=== PATIENT | male | born 1955 | race Caucasian/White ===

== ENCOUNTER → 2024-05-19 | Outpatient (CLI) | payer MEDICARE, BC ==
--- NOTE | 2024-05-19 10:08 | XR ---
EXAMINATION TYPE: XR chest 2V DATE OF EXAM: 05/19/2024 9:31 AM COMPARISON: None CLINICAL INDICATION: Male, 68 years old with history of R06.09 DYSPNEA; [facility] TECHNIQUE: XR chest 2V Frontal and lateral views of the chest. FINDINGS: Lungs/Pleura: There is no evidence of pleural effusion, focal consolidation, or pneumothorax. Pulmonary vascularity: Unremarkable. Heart/mediastinum: Cardiomediastinal silhouette is unremarkable. Musculoskeletal: No acute osseous pathology. IMPRESSION: No acute cardiopulmonary disease/process. [facility], , 05/19/2024 10:05 AM
== END ==
LOC: RADXRMAIN 09:13
PROVIDERS: ATTEND Internal Medicine
DX: Z11.59 Encounter for screening for other viral diseases (principal); Z00.00 Encounter for general adult medical examination without abnormal findings; N40.1 Benign prostatic hyperplasia with lower urinary tract symptoms; R06.09 Other forms of dyspnea
CPT/HCPCS: 71046

== ENCOUNTER → 2024-05-23 | Outpatient (CLI) | payer BC, MEDICARE ==
[2024-05-19 14:57] LABS: Basophils % (A) 1.3 %; Eosinophils % (A) 2.7 %; HCT 46.6 % (39.6-50.0); HGB 15.4 g/dL (13.0-17.0); Lymphocytes % (A) 36.3 %; Monocytes # (A) 0.64 X 10*3/uL (0.20-1.00); Monocytes % (A) 8.6 %; NRBC Per 100 WBC 0 X 10*3/uL (0.00-0.01); Neutrophils # (A) 3.77 X 10*3/uL (1.80-7.70); Neutrophils % (A) 50.8 %; Platelet Count 213 X 10*3/uL (140-440); RBC 4.96 X 10*6/uL (4.40-5.60); RDW 12.6 % (11.5-14.5); WBC 7.43 X 10*3/uL (4.50-10.00)
[2024-05-19 15:13] LABS: ALT 15 U/L (10-49); AST 14 U/L (14-35); Albumin 4.4 g/dL (3.8-4.9); Albumin/Globulin Ratio 1.76 Ratio (1.60-3.17); Alkaline Phosphatase 45 U/L (41-126); Calcium 9.4 mg/dL (8.7-10.3); Chloride 104 mmol/L (96-109); Chol/HDL Ratio 4.28 Ratio; Globulin 2.5 g/dL (1.6-3.3); Glucose 103 mg/dL (70-110); PSA Annual Screen 0.162 ng/mL (0.000-4.000); Potassium 4.8 mmol/L (3.5-5.5); Sodium 140 mmol/L (135-145); Total Bilirubin 0.3 mg/dL (0.3-1.2); Total Protein 6.9 g/dL (6.2-8.2)
--- NOTE | 2024-05-23 11:28 | CA ---
Stress Echo Report Elton Lilly Age: 68 Gender: M : 1955 Exam Date: 05/23/2024 09:44 Exam Location: [facility] Ht (in): 72 Wt (lb): 205 Ordering Physician: Arnold Cantu DO Referring Physician: KIESHA,, Infection Control Nurse: Amanda Kelley RDCS Technologist Procedure CPT: Indication: R06.09 Dyspnea ICD-9 Codes: Rhythm: Patient History: DIFFICULTY IN BREATHING, HYPERCHOLESTEROLEMIA Cardiac Medications: Medications in past 24 hours: Contrast: Stress Results Protocol: Rodríguez Total dose(mL): Exercise Duration (min:sec): 7:[address] Depression (mm): Angina Score: Coronado Score: METS: 9.1 Resting HR: 57 Resting BP: 130 / 79 Peak HR: 150 Peak BP: 200 / 63 Max Predicted HR: 151 99 % Max Predicted HR Target HR: 128 Double Product: [id number] Stress Summary: BP Response: Reason for Termination: MAX EXERTION/TARGET HR Cardiac Symptoms: DYSPNEA ON EXERTION ECG Analysis Resting ECG: Stress ECG: Arrhythmia: Echo Analysis Resting Echo: Peak Echo Analysis: MEASUREMENTS (Male/Female) Normal Values CONCLUSIONS Baseline EKG revealed normal sinus rhythm without significant ST-T changes. Patient walked on standard Rodríguez protocol for 7 minutes 53 seconds and achieved a maximal heart rate of 150 bpm which is 99% of predicted maximal. There was no angina. He developed some shortness of breath at peak exercise. No ST segment changes to indicate ischemia. No arrhythmia. This is a negative stress test with fair exercise capacity. Baseline echo images revealed normal wall motion wall thickening of all segments. At peak exercise there was good augmentation of left ventricular wall motion wall thickening of all segments suggesting that there is no evidence of stress-induced ischemia on this study. Final impression: #1 normal stress test by EKG criteria with fair exercise capacity. No evidence of ischemia #2 normal stress echocardiogram without evidence of ischemia. Dr. Tyshawn Arnett MD (Electronically Signed) Final Date: 23 May 2024 11:28
== END | disposition home or self-care (01) ==
LOC: RADNMMAIN 09:17
PROVIDERS: ATTEND Internal Medicine
DX: R06.02 Shortness of breath (principal)
CPT/HCPCS: 86803; 80061; 80053; 84443; 85025; G0103; 93351